=== PATIENT | male | born 1980 | race Caucasian/White ===

== ENCOUNTER 2023-08-15 12:51 | Emergency (ER) | payer BC, MEDICAID ==
[~2023-08-15] VITALS: Ht 185.4 cm; Wt 158.8 kg
[~2023-08-15 12:51] MED LIST: AMOX500C2 PO; DOXY-244 PO; HYDR-3919 PO
[2023-08-15 12:59] VITALS: BP_SYST 144; PULSE 85; RESP 18; TEMP 98.3; O2SAT 98
[2023-08-15 13:59] LABS: BASOPHILS # (AUTO) 0.1 K/uL (0.0-0.2); BASOPHILS % (AUTO) 0.8 % (0.0-2.0); EOSINOPHILS # (AUTO) 0.3 K/uL (0.0-0.4); EOSINOPHILS % (AUTO) 4.3 % (0.0-4.0); HEMATOCRIT 46.6 % (36-54); LYMPHOCYTES # (AUTO) 2.1 K/uL (1.0-5.5); LYMPHOCYTES % (AUTO) 26.4 % (20.5-51.5); MEAN CORPUSCULAR HEMOGLOBIN 28 pg (27-31); MEAN CORPUSCULAR HGB CONC 32 % (32-36); MEAN CORPUSCULAR VOLUME 87 fL (79.0-98.0); MONOCYTES # (AUTO) 0.8 K/uL (0.0-1.0); MONOCYTES % (AUTO) 10.2 % (1.7-9.3); NEUTROPHILS # (AUTO) 4.6 K/uL (1.8-7.7); NEUTROPHILS % (AUTO) 58.3 % (40.0-70.0); PLATELET COUNT (AUTO) 247 K/uL (130-430); RED BLOOD CELL COUNT(AUTO) 5.35 MIL/uL (4.2-6.2); RED CELL DISTRIBUTION WIDTH 13.7 % (9.0-15.0)
[2023-08-15 14:01] LABS: CALCIUM 9.2 mg/dL (8.4-11.0); CREATININE 0.87 mg/dL (0.55-1.30); POTASSIUM 3.8 mmol/L (3.5-5.1)
[2023-08-15 14:06] LABS: ALBUMIN 3.3 g/dL (3.4-4.8); TOTAL BILIRUBIN 0.3 mg/dL (0.0-1.0); TOTAL PROTEIN, SERUM 6.9 g/dL (6.4-8.3)
[2023-08-15] MEDS ORDERED: KETOROLAC TROMETHAMINE 60 MG/2 ML VIAL IM ONE (14:45)
[2023-08-15] MEDS ORDERED: ceFAZolin SODIUM 1 GM VIAL IM ONE (16:45)
[2023-08-15] MEDS ORDERED: DICL20GE TP (16:46)
[2023-08-15] MEDS ORDERED: DICL75TA5 PO (16:46)
[2023-08-15] MEDS ORDERED: CEPH-548 PO (16:46)
[2023-08-15 16:55] VITALS: BP_SYST 139; PULSE 83; RESP 18; TEMP 98.3; O2SAT 98
== END 2023-08-15 16:55 | disposition home or self-care (01) ==
LOC: SED 12:51
DX: L03.115 Cellulitis of right lower limb (principal); D17.21 Benign lipomatous neoplasm of skin and subcutaneous tissue of right arm; I87.2 Venous insufficiency (chronic) (peripheral); R22.41 Localized swelling, mass and lump, right lower limb; E66.9 Obesity, unspecified; Z79.899 Other long term (current) drug therapy
CPT/HCPCS: 99285; 93970; 80053; 85025; 87040; 36415; 96372; 83605; J0690; J1885

== ENCOUNTER 2023-08-20 21:04 | Emergency (ER) | payer MEDICAID ==
[~2023-08-20] VITALS: Ht 185.4 cm; Wt 161.0 kg
[~2023-08-20 21:04] MED LIST changes: +CEPH-548 PO; +DICL20GE TP; +DICL75TA5 PO
[2023-08-20 21:21] VITALS: BP_SYST 149; PULSE 95; RESP 18; TEMP 97.4; O2SAT 96
[2023-08-20 23:00] LABS: BASOPHILS # (AUTO) 0.1 K/uL (0.0-0.2); BASOPHILS % (AUTO) 0.9 % (0.0-2.0); EOSINOPHILS # (AUTO) 0.4 K/uL (0.0-0.4); EOSINOPHILS % (AUTO) 3.9 % (0.0-4.0); HEMATOCRIT 44.2 % (36-54); HEMOGLOBIN 14.6 g/dL (14.0-18.0); LYMPHOCYTES # (AUTO) 2.4 K/uL (1.0-5.5); LYMPHOCYTES % (AUTO) 25.8 % (20.5-51.5); MEAN CORPUSCULAR HEMOGLOBIN 29 pg (27-31); MEAN CORPUSCULAR HGB CONC 33 % (32-36); MEAN CORPUSCULAR VOLUME 87 fL (79.0-98.0); MONOCYTES # (AUTO) 0.9 K/uL (0.0-1.0); MONOCYTES % (AUTO) 9.3 % (1.7-9.3); NEUTROPHILS # (AUTO) 5.5 K/uL (1.8-7.7); NEUTROPHILS % (AUTO) 60.1 % (40.0-70.0); PLATELET COUNT (AUTO) 204 K/uL (130-430); RED BLOOD CELL COUNT(AUTO) 5.08 MIL/uL (4.2-6.2); RED CELL DISTRIBUTION WIDTH 13.9 % (9.0-15.0); WHITE BLOOD COUNT (AUTO) 9.2 K/uL (4.8-10.8)
[2023-08-20 23:13] LABS: CALCIUM 8.6 mg/dL (8.4-11.0); CREATININE 0.88 mg/dL (0.55-1.30); POTASSIUM 3.4 mmol/L (3.5-5.1)
[2023-08-20 23:16] LABS: ALBUMIN 3.3 g/dL (3.4-4.8); TOTAL BILIRUBIN 0.6 mg/dL (0.0-1.0); TOTAL PROTEIN, SERUM 6.8 g/dL (6.4-8.3); URIC ACID 4.6 mg/dL (2.4-7.0)
[2023-08-20] MEDS ORDERED: HYDR-3917 PO (23:18)
[2023-08-20] MEDS ORDERED: HYDROcodone/ACETAMIN 5-325 MG TAB (NORCO/ VICODIN) PO ONE (23:30)
== END 2023-08-20 23:28 | disposition home or self-care (01) ==
LOC: SED 21:04
DX: M79.671 Pain in right foot (principal); Z79.899 Other long term (current) drug therapy
CPT/HCPCS: 36415; 80053; 84550; 85025; 99284

== ENCOUNTER 2024-04-25 15:28 | Emergency (ER) | payer MEDICAID, OTHER ==
[~2024-04-25] VITALS: Ht 185.4 cm; Wt 167.8 kg
[~2024-04-25 15:28] MED LIST changes: +HYDR-3917 PO
[2024-04-25 15:33] VITALS: BP_SYST 152; PULSE 87; RESP 16; TEMP 98.1; O2SAT 94
[2024-04-25] MEDS ORDERED: IBUP-1971 PO (15:51)
[2024-04-25] MEDS ORDERED: HYDR-3917 PO (15:51)
[2024-04-25] MEDS ORDERED: CLIN-142 PO (15:51)
[2024-04-25] MEDS: CLINDAMYCIN HCL 150 MG CAPSULE PO ONE (16:13)
[2024-04-25 16:14] VITALS: BP_SYST 141; PULSE 71; RESP 18; O2SAT 99
[2024-04-25] MEDS ORDERED: TRAM50TA2 PO (18:59)
== END 2024-04-25 16:15 | disposition home or self-care (01) ==
LOC: SED 15:28
DX: K04.7 Periapical abscess without sinus (principal); Z79.899 Other long term (current) drug therapy; Z79.2 Long term (current) use of antibiotics
CPT/HCPCS: 99283

== ENCOUNTER 2024-05-04 18:32 | Emergency (ER) | payer OTHER ==
[~2024-05-04] VITALS: Ht 185.4 cm; Wt 170.1 kg
[~2024-05-04 18:32] MED LIST changes: +CLIN-142 PO; +IBUP-1971 PO; +TRAM50TA2 PO
[2024-05-04 18:50] VITALS: BP_SYST 141; PULSE 96; RESP 18; TEMP 97.5; O2SAT 95
[2024-05-04] MEDS: NACL 0.9% 1,000 ML IV ONE (19:53)
[2024-05-04] MEDS: PIPERACILLIN/TAZO 3.375 GM in NS 50 ML IV ONE (20:29)
[2024-05-04] MEDS ORDERED: PIPERACILLIN/TAZOBACTAM 3.375 GM/VIAL (ZOSYN) IV ONE (20:29)
[2024-05-04] MEDS: MORPHINE 4 MG INJ. 4 MG/ML VIAL IVP ONE (20:36)
[2024-05-04] MEDS ORDERED: PENI500T PO (21:27)
[2024-05-04] MEDS ORDERED: NAPR-1172 PO (21:27)
[2024-05-04 22:13] VITALS: BP_SYST 112; PULSE 87; RESP 18; TEMP 97.4; O2SAT 95
== END 2024-05-04 22:13 | disposition home or self-care (01) ==
LOC: SED 18:32
DX: L03.211 Cellulitis of face (principal); R51.9 Headache, unspecified; K08.89 Other specified disorders of teeth and supporting structures; Z79.899 Other long term (current) drug therapy; Z79.2 Long term (current) use of antibiotics
CPT/HCPCS: 99285; 96365; 70486; 96361; 96375; 87040; 36415; J2543; J2270; J7030